=== PATIENT | male | born 1955 | race Caucasian/White ===

== ENCOUNTER 2018-08-25 08:13 | Inpatient (IN) | payer OTHER, SELFPAY ==
[2018-08-04 07:21] VITALS: BMI 29.8
[2018-08-25] VITALS (15 sets, daily range): BP systolic 105–141; BP diastolic 64–92; PULSE 63–81; RESP 16–20; TEMP 36.3–36.8; O2SAT 88–96; BMI 28.6
[2018-08-25] MEDS: CELECOXIB 200 MG CAPSULE PO (09:07)
[2018-08-25] MEDS: LACTATED RINGERS 1,000 ML 42 ML IV ×2 (09:07→11:46)
[2018-08-25] MEDS: PREGABALIN 75 MG CAPSULE PO (09:07)
[2018-08-25] MEDS: ACETAMINOPHEN 325 MG TABLET 975 MG PO ×3 (09:07→21:34)
--- NOTE | 2018-08-25 09:56 | PM.PREOP ---
Pre-operative Note Interval Note History & Physical reviewed/Exam performed by Physician: Yes Changes to H&P: No
--- NOTE | 2018-08-25 10:11 | PM.OP.1 ---
Operative Date/Time/Diagnoses Date of procedure: 08/25/18 Time of procedure: 12:15 Pre-op diagnosis: Left knee osteoarthritis Post-op diagnosis: same Procedure & Clinicians Procedure: Left total knee replacement Same procedure as scheduled: Yes Indications: The patient has had progressively worsening left knee pain with radiographic changes consistent with arthritis. Non-operative management has failed and the patient has requested total knee replacement. The risks, benefits and alternatives to surgery were discussed with the patient prior to proceeding. Risks discussed included, but were not limited to, failure to relieve pain, stiffness, infection, nerve damage, deep venous thrombosis, pulmonary embolism, stroke, coma, heart attack, permanent paralysis and , as well as the potential need for eventual revision of the prosthetic. Surgeon: Alireza Fitzgerald Police Commissioner: Zuleika Tipton Click Yes if Unassisted: No Anesthesia Type: General and Local Operative Notes Findings: Significant medial and patellofemoral osteoarthritis Closure Type: primary Specimen(s): none sent Prosthetic devices, grafts, tissues, transplants, or devices: Implants used in this procedure were manufactured by the [employer] and [employer] and included the BCS II Journey total knee replacement with a size 6 Oxinium femoral component, a size 6 left non porous tibial base plate, a 9 mm cross-linked polyethylene tibial insert and a 38 mm oval Trang II patella. Applied: implant(s) Estimated Blood Loss (mL): 50 Blood products transfused: none Tourniquet time (min): 55 Procedure in detail: The patient was seen in the pre-operative area, where the left knee was identified as the operative site and this was marked with my initials. The patient received pre-operative antibiotics, and was taken to the operating room and placed on the operative table in the supine position. After satisfactory anesthesia, a methods time analyst out? was performed. The left leg was encircled with a tourniquet about the proximal thigh, and the leg was prepared from the toes to the tourniquet with ChloroPrep in the usual fashion and draped through sterile drapes. The leg was elevated and exsanguinated with Eschmark bandage and the tourniquet inflated to 250 mmHg pressure. The knee was approached through an approximately 18 cm incision centered over the patella and carried into the knee through a medial parapatellar arthrotomy. The anterior osteophytes and soft tissues were removed. The rotational landmarks of Pastor's line and the transepicondylar axis were marked on the femur with electrocautery, and intramedullary guide holes for the femur and tibia were created. The distal femoral cut was made in 6 degrees of valgus using the intramedullary guide at the primary cut setting. The proximal tibial cut was then made using the intramedullary guide, taking 9 mm of bone off the less involved side. The extension gap was checked and the rotation of the femoral component confirmed with the gap balancing blocks. The anterior, posterior and chamfer cuts were then made. The posterior osteophytes and soft tissues were then removed. The posterior capsule was injected with part of a mixture of 60 ml 0.25% Marcaine mixed with 20 ml Exparel and 4 mg of morphine for post-operative pain control. The remainder of this mixture was injected into the capsule and subcutaneous tissues during cement curing. The tibia was prepared with the rotation set by an extra medullary guide. Trial tibial and femoral components were then placed and the intercondylar notch cut through the femoral trial. Range of motion was 0-140 degrees, with good stability throughout the range. The patella was then cut to accommodate the patellar prosthetic. There was no need for a lateral release. The trials were then removed, and the femoral hole plugged with a bone plug. The bone was prepared with pulsatile lavage, and dried with a sponge. Cement was applied and the final prosthetics placed. Excess cement was removed during and after cement curing. After confirming there was no extruded cement posteriorly, the final tibial insert was placed. The knee was copiously irrigated and the tourniquet deflated. Hemostasis was obtained. The capsule was closed with interrupted # 2 polyester sutures. The subcutaneous layer was closed with 3-0 Vicryl, and the skin with a running 3-0 V-Lock suture and SteriStrips. An Aquacel Ag dressing was applied and the patient was taken to recovery having tolerated the procedure well. Complications: none Condition: stable Disposition: PACU Plan for aftercare: The patient will be maintained on a standard total knee replacement protocol with weight bearing as tolerated. The patient will receive aspirin and sequential compression devices for DVT prophylaxis. The patient will be discharged home when safe for the home environment.
[2018-08-25] MEDS: CEFAZOLIN 2 GM/100 ML FROZ.PIGGY IV ×2 (10:34→18:39)
[2018-08-25] MEDS: TRANEXAMIC ACID 1,000 MG VIAL 2 MG INJ ×2 (10:55→12:03)
--- NOTE | 2018-08-25 11:04 | SUR.OPER ---
Supine on padded OR bed. Pillow under head, arms secured on padded armboards <90 degree abduction. Safety belt across torso. Non-operative leg secured with tape over blanket over lower leg. Operative leg secured in DeMayo/Parag positioner. Foam padded brace at thigh of operative leg.
[2018-08-25] MEDS: BUPIVACAINE 0.25% W/ EPI VIAL 60 ML INJ (11:09)
[2018-08-25] MEDS: BUPIVACAINE LIPOSOME 266 MG/20 ML VIAL INJ (11:10)
[2018-08-25] MEDS: MORPHINE 4 MG/ML INJ INJ (11:11)
--- NOTE | 2018-08-25 11:28 | PC.NURSE ---
Day shift: Pt not on AC unit at this time.
--- NOTE | 2018-08-25 12:33 | DI.RAD.S_ITS ---
PROCEDURE: XR KNEE LT 1TO2V INDICATIONS: post op total knee TECHNIQUE: 2 view(s) of the knee acquired. COMPARISON: [facility], , KNEE 1-2 VIEWS RIGHT, 05/14/2016, 10:08. FINDINGS: Bones: Patient is status post knee joint arthroplasty. Hardware components are in expected positions. Visualized bony structures are intact. Soft tissues: Overlying postoperative changes are noted. IMPRESSION: Expected postoperative appearance Dictated by: Graeme Fuchs M.D. on 08/25/2018 at 13:05 Approved by: Graeme Fuchs M.D. on 08/25/2018 at 13:06
[2018-08-25] MEDS: MEPERIDINE 50 MG/ML IV (12:38)
[2018-08-25] MEDS: HYDROMORPHONE 2 MG INJ 0.5 MG IV ×4 (12:56→13:15)
[2018-08-25] MEDS: hydrOXYzine pamoate 25 MG CAPSULE PO (14:33)
[2018-08-25] MEDS: OXYCODONE IR 5 MG TABLET PO ×3 (14:33→23:29)
[2018-08-25] MEDS: LACTATED RINGERS 1,000 ML 125 ML IV ×2 (14:35→21:53)
--- NOTE | 2018-08-25 14:37 | PC.NURSE ---
PT RECEIVED TO ROOM 214- POST OP LEFT KNEE, PAIN RATED 3/10 MEDICATED WITH OXYCODONE/VISTARIL PO, TAKING ADEQUATE PO INTAKE WITH NO SIGNS OF NAUSEA- ORIENTED TO ROOM AND USE OF CALL LIGHT AND BED ALARMS- DRESSING AND DEIRDRE WRAP INTACT AND CLEAN + CMS
--- NOTE | 2018-08-25 19:10 | PC.NURSE ---
Pt reports he feels comfortable with oxycodone administration - pain at 3-4/10. Has voided using the urinal post op x2. Spouse in room assisting with his cares and will be staying overnight in room. Pt reported he got up with his 's assistance and stood by the bed to use the urinal. Pt advised by this RN to call for assistance next time just to be sure he can support his own weight. Pt was not seen by PT today as is usual for this type of surgery. PT will evaluate tomorrow. Pt enjoying his evening meal, denies nausea and is expressing appreciation for his care.
[2018-08-25] MEDS: ASPIRIN EC 81 MG TABLET PO (21:35)
[2018-08-25] MEDS: DOCUSATE 100 MG CAPSULE PO (21:35)
--- NOTE | 2018-08-26 00:24 | PC.NURSE ---
Addendum entered by Johanna Gotti R.N. 08/26/18 03:23: Up to ambulate in [place] with walker and SBA. Walked from room, around [facility] then past [facility] and then back to bed. States pain is 4/10 so medicated with Oxycodone + Vistaril and ice pack reapplied. Did well with transfer and ambulation. Original Note: Patient is alert and oriented. Breath sounds CTA with RA sat of 93-96%. HRR. Denies nausea. BT present and is passing some flatus; abdomen is soft. Denies dysuria or urgency but voiding more frequently due to IVF infusing and good po intake. Stands at side of bed with walker and 1 assist to void in urinal. Is able to move himself in bed. Aquacel + di wrap to left LE is CDI. Pain at shift change was 3/10 and now 1/10 after receiving Oxycodone. Ice pack reapplied for comfort. CMS intact. Does have 1+ edema in left LE. Wearing bilateral SCD's. Fall risk score is moderate; instructed to call for assist when getting out of bed.
[2018-08-26] MEDS: CEFAZOLIN 2 GM/100 ML FROZ.PIGGY IV (03:05)
[2018-08-26] MEDS: OXYCODONE IR 5 MG TABLET PO ×2 (03:21→09:56)
[2018-08-26] MEDS: hydrOXYzine pamoate 25 MG CAPSULE PO ×2 (03:21→09:56)
[2018-08-26 03:46] VITALS: BP 130/77; PULSE 83; RESP 18; TEMP 36.8; O2SAT 96
[2018-08-26 07:33] LABS: Hematocrit 41.3 % (41-53); Hemoglobin 14.2 g/dL (13.5-17.5)
--- NOTE | 2018-08-26 07:33 | P.DS_ITS ---
History of Present Illness Date Patient Seen: 08/26/18 Time Patient Seen: 07:31 Chief complaint: left knee [id number] Narrative: The history and physical is contained in the chart previously compl eted note. Please refer to that note for this information. Discharge Providers Date of admission: 08/25/18 08:13 Primary care physician: Michael Ann MD Consults: 08/25/18 14:05 Consult to Anesthesiology Routine Comment: Consulting Provider: Anesthesiologist Reason for consultation: Regional block for post operative pain control Consult to Discharge Planning Routine Comment: Consult to Physical Therapy Evaluate & Treat Comment: Physician Instructions: postop TKA protocol Discharge provider: Alireza Fitzgerald MD Discharge Date: 08/26/18 Summary Discharge Diagnosis: Left knee osteoarthritis Hospital Course: The patient was admitted to the hospital and taken directly to the operating room on August 25, 2018 where he underwent a left total knee replacement without significant complications. He was stable and comfortable overnight. It is anticipated he will be able to be discharged today as he was up and walking in the halls yesterday evening. Status at Discharge Cognitive/behavioral status at discharge: At baseline Functional status at discharge: uses cane/walker Overall status at discharge: patient is progressing back to baseline Time Spent with Patient Less than 30 minutes Exam Vital Signs (past 8 hours): - 08/25/18 23:40 08/26/18 03:46 Temperature 98.0 F 98.2 F Pulse Rate 68 83 Respiratory Rate 18 18 Blood Pressure 140/77 130/77 Pulse Oximetry 95 96 Oxygen Delivery Method Room Air Oxygen Flow Rate 0 Narrative Exam Narrative: Left knee wound is dressed with no drainage on the bandage. Calf is soft. Light touch and motion are intact in the left lower extremity. Objective Labs Result Diagrams: 08/26/18 06:30 Discharge Plan Discharge Plan Patient Disposition: Home Discharge Med Rec/Prescriptions Prescriptions: New acetaminophen 325 mg Tablet 975 mg PO TID 30 Days Qty: 270 RF: 0 aspirin 81 mg Tablet,Delayed Release (Dr/Ec) 81 mg PO BID 42 Days Qty: 84 RF: 0 oxycodone 5 mg Tablet 5 mg PO Q3HR PRN (Reason: Pain, Moderate (4-6)) Qty: 40 RF: 0 hydroxyzine pamoate 25 mg Capsule 25 mg PO Q6HR PRN (Reason: Nausea) Qty: 40 RF: 0 Continued diltiazem HCl 240 MG capsule,extended release 24hr 240 mg PO QDAY Qty: 0 RF: 0 zolpidem [Ambien] 10 MG tablet 10 mg PO HSP PRN (Reason: Sleep) Qty: 0 RF: 0 meloxicam 15 mg Tablet 15 mg PO DAILY RF: 0 tadalafil [Cialis] 5 mg Tablet 0.5 - 1 tab PO DAILY PRN (Reason: Sexual Activity) RF: 0 Follow up/Referrals: Alireza Fitzgerald MD [Physician] - 3-5 Days Michael Ann MD [Primary Care Provider] - Provider Discharge Instructions Diet: Diet as Tolerated and Regular Activity: You may bear weight as tolerated on your left leg. Cold/Heat Therapy: Apply ice for 15 min every hour to the left knee as needed for pain. Skin/Wound/Dressing Care Report to your healthcare provider any signs of infection, such as:: chills, fever, night sweats, increased pain, unusual drainage and unusual redness Dressing: Remove the Lonny wrap 3 days after surgery. You may shower with the deeper dressing in place. Please keep the dressing intact. If the center strip is saturated with either water or blood please call the office. Visit Report/Discharge Packet Instructions: DI for Knee Replacement Stand Alone Forms: Surgery Discharge Discharge Data Primary Care Provider: Michael Ann Attending Provider: Alireza Fitzgerald Admit Date/Time: 08/25/18 08:13
[2018-08-26 08:40] VITALS: BP 133/78; PULSE 82; RESP 20; TEMP 37.2; O2SAT 93
[2018-08-26] MEDS: MELOXICAM 7.5 MG TABLET 15 MG PO (08:41)
[2018-08-26] MEDS: ASPIRIN EC 81 MG TABLET PO (08:41)
[2018-08-26] MEDS: ACETAMINOPHEN 325 MG TABLET 975 MG PO (08:41)
[2018-08-26] MEDS: dilTIAZem CD 240 MG CAP PO (08:41)
[2018-08-26] MEDS: DOCUSATE 100 MG CAPSULE PO (08:41)
[2018-08-26] MEDS: POLYETHYLENE GLYCOL 3350 17 GM POWD.PACK PO (08:44)
[2018-08-26] MEDS: MAG HYDROX/ALUM/SIMETH 30 ML UDC PO (08:47)
--- NOTE | 2018-08-26 09:25 | PT.IIE ---
Current Diagnoses Unilateral primary osteoarthritis, left knee (08/25/18) Surgery Performed Operation Date: 08/25/18 10:30 Actual Procedures p Total Knee Arthroplasty(Left) - Alireza Fitzgerald MD Surgical History (Last Updated 08/04/18 @ 07:25 by Kim New RN) Hx of arthroscopic knee surgery (Acute) S/P cervical spinal fusion (Acute ~2010) Medical History (Last Updated 08/04/18 @ 07:28 by Kim New RN) Asthma (Acute) Former smoker (Acute) Hyperlipidemia (Acute) Insomnia (Acute) Osteoarthritis (Acute) SVT (supraventricular tachycardia) (Acute) Sleep apnea (Acute) Spinal stenosis (Acute 05/14/16) Physical Therapy Inpatient Evaluation/Re-Eval M1 PT/OT-IP Prior Functional Status Start: 08/26/18 08:14 Freq: NEEDED Status: Discharge Protocol: Document 08/26/18 09:25 DLM (Rec: 08/26/18 11:40 DLM [email or web address]) Medical Review Prior Functional Status Medical History Reviewed Yes Diet/Fluid Consistency Regular Communication WNL Mobility and Gait Independent without device in community, likes to Hike and richards Activities of Daily Living and IADL's Independent Social History Household Members spouse Living Arrangements House Number of Floors (Floors) One Floor Number of Stairs To Enter/Railing? 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 PT-IP Current Condition Start: 08/26/18 08:14 Freq: NEEDED Status: Discharge Protocol: Document 08/26/18 09:25 DLM (Rec: 08/26/18 11:40 DLM [email or web address]) Physical Therapy Current Condition Current Condition Evaluation Date 08/26/18 Treatment Diagnosis left TKA, impaired gait Onset Date 08/25/18 Weight Bearing Status Weight Bearing Status Weight Bear as Tolerated M3 PT-IP Subjective Start: 08/26/18 08:14 Freq: NEEDED Status: Discharge Protocol: Document 08/26/18 09:25 DLM (Rec: 08/26/18 11:40 DLM [email or web address]) Subjective Physical Therapy Visit Type Type Initial Evaluation Visit Start Time 08:50 Visit Stop Time 09:25 Total Visit Minutes 35 Number of TRACK SERVICE WORKER Visits 0 Physical Therapy Visit Comments Patient Comments He wants to go home today, has out-pt PT set up for Saturday Patient Goals go home Therapy Pain Assessment Pain When Pain Assessed During Mobility Pain Present Pain Present Pain Reported Location Left Knee Intensity 3 Scale Used Numeric (1 - 10) Description Aching With Movement Pain Management Techniques Apply Cold M4 PT-IP Mobility and Gait Start: 08/26/18 08:14 Freq: NEEDED Status: Discharge Protocol: Document 08/26/18 09:25 DLM (Rec: 08/26/18 11:40 DL [email or web address]) PT-Bed Mobility Assessment Rolling Type of Rolling Bilateral Level of Assist Independent Supine to Sit Supine to Sit Independent Sit to Supine Sit to Supine Independent Scooting Scooting to Edge of Bed Independent Scooting Up and Down in Bed Independent PT-Transfer Assessment Sit to and From Stand Sit to and from Stand Independent Use of Upper Extremities Equipment Transfer Assistive Device Gait Belt Front Wheeled Walker Transfers Transfer Destination Bed Transfer Technique Stand Step Pivot Transfer Ability Level of Assist Independent Use of Upper Extremities Gait Assessment Gait Gait Assistance Required: Independent Distance (Feet) 150 Able to Maintain Weight Bearing Status Yes During Gait Assistive Devices Assistive Device Gait Belt Front Wheeled Walker Gait Deviations General Gait Pattern Antalgic Factors Limiting Gait Function Factors Limiting Gait Function Decreased Sensation Decreased Strength Limited Range of Motion Stair Climbing Assessment Comments Stair Climbing Comments verbally reviewed stair sequencing, pt did not feel he needed to practice, able to place weight on surgical LE with UE support for safe stepping up PT-Balance Assessment Sitting Balance and Reactions Static Sitting Balance Ability Normal Dynamic Sitting Balance Ability Normal Standing Balance and Reactions Static Standing Balance Ability Good Dynamic Standing Balance Ability Good Device Used with fWW M5 PT-IP Objective Assessments Start: 08/26/18 08:14 Freq: NEEDED Status: Discharge Protocol: Document 08/26/18 09:25 DL (Rec: 08/26/18 11:40 [facility] [email or web address]) Orientation Orientation/Cognition Orientation Name Age Birthday Month Date Year Day of Week Place Situation Language Function Ability No Deficits Noted Safety Awareness Understands Safety Issues Memory Description No Deficits Noted Gross Range of Motion Upper Extremity ROM Assessment Within Functional Limits Lower Extremity ROM Assessment Left Impaired Impairments knee ext in supine lacking 10 degrees, knee flexion sitting to 95 degrees actively Strength Upper Extremity Strength Assessment Within Functional Limits Lower Extremity Strength Assessment Left Impaired Hip able to do straight leg raise with extensor lag Knee 3-/5 Ankle DF 4+/5 Coordination Assessment Gross Coordination Gross Coordination WNL Sensation Assessment Sensation Gross Sensation Left LE Impaired Light Touch Impaired Sensation Description Numbness Comments Sensation Comments numbness in knee area since surgery Muscle Tone Muscle Tone WNL Yes M6 PT-IP Treatment Start: 08/26/18 08:14 Freq: NEEDED Status: Discharge Protocol: Document 08/26/18 09:25 DLM (Rec: 08/26/18 11:40 DLM [email or web address]) Physical Therapy Treatment Exercises Exercises Ankle Pumps Quad Sets Heel Slides Straight Leg Raises Short Arc Quads Passive Knee Extension Hang Seated Knee Flexion/Extension Knee ROM Measurement 10-95 Education Education Provided Precautions Post-Op Packet Safety Equipment Issued Equipment Type and Company pt has a fWW at home M7 PT-IP Assessment and Plan Start: 08/26/18 08:14 Freq: NEEDED Status: Discharge Protocol: Document 08/26/18 09:25 DLM (Rec: 08/26/18 11:40 DLM [email or web address]) PT Summary Assessment and Plan Potential Rehabilitation Potential Excellent Status of Condition at Evaluation Evolving Summary Impairments Pain ROM Strength Balance Activity Tolerance Assessment Summary Davion tolerated mobility well today including gait in the halls with FWW. He has a supportive to assist him at home as needed. He appears safe to discharge home when medically stable. No goals set since anticiapate he will discharge home later today. Treatment Plan Other Recommendations and Next Treatment completed training in HEP this Focus visit Recommendations To Nursing Amount of Assist Needed Standby Assistance Discharge Recommendations PT Discharge Recommendations Home with Assistance Outpatient PT
--- NOTE | 2018-08-26 10:28 | PC.NURSE ---
Day shift: Pt left unit at approx 1030 in with spouse to private car. AUTO BUMPER MECHANIC wheeled Pt to car. Paperwork signed and all questions answered. Pt has all personal belongings. All questions answered. Pt is [employer].
--- NOTE | 2018-08-26 10:54 | CM.DANOTE ---
DCP: Case received, EMR reviewed and met with patient. Introduced self and role. DCP template completd with information currently available. Patient is a 62 year old male who admitted yesterday morning to the care of the surgical team. PCP: Dr. Monroy at [facility]. Payer: confirmed: [facility]. Patient came to hospital for surgical procedure. Had a left total knee replacement. Met briefly with patient, spouse, Paola, was in room. Patient alert and oriented. Stated that he had knee surgery before, so he knows what to expect. Has a walker, and already has outpatient physical therapy set up. Will be working with physical therapy, and could be discharged home today. P: DCP to continue to follow. Could be discharged home today after working with therapy team. Rosa Salazar RN/Chair Inspector
== END 2018-08-26 10:37 | disposition home or self-care (01) | DRG 470 ==
PROVIDERS: Admitting Provider Orthopaedic Surgery; PCP Family Medicine; Visit Provider Orthopaedic Surgery
PROC: 0SRD0JZ Replacement of Left Knee Joint with Synthetic Substitute, Open Approach (ICD-10-PCS; CPT 27447; principal; 2018-08-25 10:30)
DX: M17.12 Unilateral primary osteoarthritis, left knee (principal)
CPT/HCPCS: 36415; 73560; 85014; 85018; 97110; 97162; C1776; C9290; J0690; J1100; J1170; J2175; J2270; J2704; J3010